=== PATIENT | female | born 1980 | race Caucasian/White ===

== ENCOUNTER → 2017-12-28 | Outpatient (REF) | payer BC ==
[2017-12-29 13:57] LABS: FERRITIN 19 NG/ML (8-252); IRON (FE) 53 UG/DL (50-170); PERCENT SATURATION 12.2 % (13.2-45.0); TOTAL IRON BINDING CAPACITY 433 UG/DL (250-450)
== END ==
LOC: M LAB REF 13:17
DX: D64.9 Anemia, unspecified (principal)
CPT/HCPCS: 82746

== ENCOUNTER → 2018-02-24 | Outpatient (REF) | payer BC ==
[2018-02-24 13:49] LABS: BASO % 0.2 % (0.0-1.0); EOS % 0.5 % (0.0-3.0); HEMATOCRIT 37.2 % (36.0-47.0); HEMOGLOBIN 11.8 g/dl (12.0-15.5); IMMATURE GRANULOCYTE % 0.3 % (0-3.0); LYMPH # 1.4 10^3/uL (1.5-4.5); LYMPH % 23.1 % (24.0-44.0); MEAN CORPUSCULAR HEMOGLOBIN 29.9 pg (27.0-33.0); MEAN CORPUSCULAR HGB CONC 31.7 g/dl (32.0-36.5); MEAN CORPUSCULAR VOLUME 94.4 fl (80.0-96.0); MONO # 0.5 10^3/uL (0.0-0.8); MONO % 8.6 % (0.0-5.0); NEUTROPHILS # 4.2 10^3/uL (1.8-7.7); NEUTROPHILS % 67.3 % (36.0-66.0); PLATELET COUNT, AUTOMATED 252 10^3/uL (150-450); RED BLOOD COUNT 3.94 10^6/uL (4.00-5.40); RED CELL DISTRIBUTION WIDTH 12.8 % (11.5-14.5); WHITE BLOOD COUNT 6.2 10^3/uL (4.0-10.0)
[2018-02-24 14:17] LABS: ALBUMIN 3.1 GM/DL (3.2-5.2); ALBUMIN/GLOBULIN RATIO 0.84 (1.00-1.93); ALKALINE PHOSPHATASE 61 U/L (45-117); ALT/SGPT 21 U/L (12-78); ANION GAP 8 MEQ/L (8-16); AST/SGOT 14 U/L (7-37); BILIRUBIN,TOTAL 0.4 MG/DL (0.2-1.0); BLOOD UREA NITROGEN 18 MG/DL (7-18); CALCIUM LEVEL 8.5 MG/DL (8.5-10.1); CARBON DIOXIDE LEVEL 24 MEQ/L (21-32); CHLORIDE LEVEL 108 MEQ/L (98-107); CREATININE FOR GFR 0.95 MG/DL (0.55-1.30); ERYTHROCYTE SEDIMENTATION RATE 41 mm/hr (0-20); FOLATE 11.2 NG/ML; GLOMERULAR FILTRATION RATE > 60.0 (>60); GLUCOSE, FASTING 81 MG/DL (70-100); POTASSIUM SERUM 4.5 MEQ/L (3.5-5.1); RHEUMATOID FACTOR QUANT < 10.0 IU/ML (<15.0); SODIUM LEVEL 140 MEQ/L (136-145); TOTAL 25(OH) VITAMIN D 47.2 NG/ML (30.0-100.0); TOTAL PROTEIN 6.8 GM/DL (6.4-8.2); VITAMIN B12 LEVEL 522 PG/ML
[2018-02-28 14:10] LABS: LEVETIRACETAM (KEPPRA) 40.8 ug/mL (10.0-40.0)
[2018-02-28 14:10] LABS: ANTI DOUBLE STRAND-DNA AB 1 IU/mL (0-9); ANTINUCLEAR ANTIBODIES DIRECT Positive (Negative); RNP ANTIBODIES <0.2 AI (0.0-0.9); SJOGREN'S ANTI SS-B <0.2 AI (0.0-0.9); SMITH ANTIBODIES <0.2 AI (0.0-0.9)
== END ==
LOC: M LABNEURO 09:04
DX: R51 Headache (principal); M54.2 Cervicalgia
CPT/HCPCS: 82746

== ENCOUNTER → 2018-05-13 | Outpatient (REF) | payer BC ==
[2018-05-16 14:46] LABS: ANTINUCLEAR ANTIBODIES DIRECT Negative (Negative); CARDIOLIPIN IGA ANTIBODY <9 APL U/mL (0-11); CARDIOLIPIN IGG ANTIBODY <9 GPL U/mL (0-14); CARDIOLIPIN IGM ANTIBODY <9 MPL U/mL (0-12)
== END ==
LOC: M LABNEURO 10:25
PROVIDERS: ATTEND Psychiatry & Neurology Neurology
DX: R51 Headache (principal)

== ENCOUNTER → 2018-10-15 | Outpatient (CLI) | payer BC ==
[2018-10-15 12:24] LABS: BASO % 0.4 % (0.0-1.0); EOS % 0.6 % (0.0-3.0); HEMATOCRIT 36.7 % (36.0-47.0); HEMOGLOBIN 11.8 g/dl (12.0-15.5); LYMPH # 2.1 10^3/uL (1.5-4.5); LYMPH % 39.5 % (24.0-44.0); MEAN CORPUSCULAR HEMOGLOBIN 29.6 pg (27.0-33.0); MEAN CORPUSCULAR HGB CONC 32.2 g/dl (32.0-36.5); MONO # 0.5 10^3/uL (0.0-0.8); MONO % 9.3 % (0.0-5.0); NEUTROPHILS # 2.7 10^3/uL (1.8-7.7); PLATELET COUNT, AUTOMATED 217 10^3/uL (150-450); RED BLOOD COUNT 3.99 10^6/uL (4.00-5.40); WHITE BLOOD COUNT 5.4 10^3/uL (4.0-10.0)
[2018-10-15 12:50] LABS: BLOOD UREA NITROGEN 13 MG/DL (7-18); CARBON DIOXIDE LEVEL 27 MEQ/L (21-32); CHLORIDE LEVEL 107 MEQ/L (98-107); CREATININE FOR GFR 0.74 MG/DL (0.55-1.30); GLOMERULAR FILTRATION RATE > 60.0 (>60); GLUCOSE, FASTING 90 MG/DL (70-100); POTASSIUM SERUM 4.5 MEQ/L (3.5-5.1); SODIUM LEVEL 141 MEQ/L (136-145)
[2018-10-15 12:51] LABS: CALCIUM LEVEL 8.7 MG/DL (8.5-10.1); THYROID STIMULATING HORMONE 0.926 uIU/ML (0.358-3.740)
== END ==
LOC: M LAB 11:11
PROVIDERS: ATTEND Internal Medicine
DX: D64.9 Anemia, unspecified (principal); E83.42 Hypomagnesemia

== ENCOUNTER 2019-05-14 16:00 | Emergency (ER) | payer BC ==
[~2019-05-14] VITALS: Ht 170.2 cm; Wt 112.6 kg
[2019-05-14] MEDS ORDERED: GALC120S SQ (16:12)
[2019-05-14] MEDS ORDERED: INDO-16 PO (16:12)
[2019-05-14] MEDS ORDERED: OMEG10002 PO (16:12)
[2019-05-14] MEDS ORDERED: CETI10CA2 PO (16:12)
[2019-05-14] MEDS ORDERED: FLON1SPR NARES (16:12)
[2019-05-14] MEDS ORDERED: KEPP1TAB2 PO (16:12)
[2019-05-14] MEDS ORDERED: SUMA100T2 PO (16:12)
[2019-05-14] MEDS ORDERED: BENEPOW18 PO (16:12)
[2019-05-14] MEDS ORDERED: COLA100C5 PO (16:12)
[2019-05-14] MEDS ORDERED: LISI-538 PO (16:12)
[2019-05-14] MEDS ORDERED: ALIG4CAP PO (16:12)
[2019-05-14] MEDS ORDERED: CVS500CA5 PO (16:12)
[2019-05-14] MEDS ORDERED: DEXI60CA2 PO (16:12)
[2019-05-14] MEDS ORDERED: B-12100010 PO (16:12)
[2019-05-14] MEDS ORDERED: IRON65TA2 PO (16:12)
[2019-05-14] MEDS ORDERED: VITA500079 PO (16:12)
[2019-05-14] MEDS ORDERED: ACETAMINOPHEN 325 MG TAB PO ONE (17:45)
[2019-05-14] MEDS ORDERED: NS 1,000 ML IV ONE (17:45)
[2019-05-14] MEDS ORDERED: KETOROLAC 30 MG/ML VIAL (J1885) IV ONE (18:07)
[2019-05-14 19:05] LABS: BASO % 0.2 % (0.0-1.0); EOS # 0.1 10^3/uL (0.0-0.5); EOS % 0.7 % (0.0-3.0); HEMATOCRIT 40.6 % (36.0-47.0); HEMOGLOBIN 13.3 g/dl (12.0-15.5); LYMPH # 2.8 10^3/uL (1.5-5.0); LYMPH % 34.3 % (24.0-44.0); MEAN CORPUSCULAR HEMOGLOBIN 30.6 pg (27.0-33.0); MEAN CORPUSCULAR HGB CONC 32.8 g/dl (32.0-36.5); MEAN CORPUSCULAR VOLUME 93.5 fl (80.0-96.0); MONO # 0.7 10^3/uL (0.0-0.8); MONO % 8.2 % (0.0-5.0); NEUTROPHILS # 4.7 10^3/uL (1.5-8.5); NEUTROPHILS % 56.5 % (36.0-66.0); PLATELET COUNT, AUTOMATED 255 10^3/uL (150-450); RED BLOOD COUNT 4.34 10^6/uL (4.00-5.40); WHITE BLOOD COUNT 8.3 10^3/uL (4.0-10.0)
--- NOTE | 2019-05-14 19:14 | REPVR ---
PROCEDURE INFORMATION: Exam: US Pelvis Complete, Transabdominal and US Pelvis, Transvaginal Exam date and time: 05/14/2019 5:43 PM Age: 38 years old Clinical indication: Pelvic pain; Additional info: Severe pelvic pain, heavy vag bleeding TECHNIQUE: Imaging protocol: Real-time transabdominal and transvaginal pelvic ultrasound (complete) with image documentation. Transvaginal imaging was used for better evaluation of the endometrium and adnexa. COMPARISON: No relevant prior studies available. FINDINGS: Uterus/cervix: The uterus measures 8.9 x 4.7 x 5.2 cm. The uterus is retroverted and retroflexed. The endometrial stripe measures 1.0 cm in thickness. This study is limited by body habitus and uterine orientation. An intramural mass is identified within the anterior wall of the uterus measuring 2.0 x 2.0 x 2.6 cm, consistent with a fibroid. Evaluation of the cervix is limited. Right adnexa: The right ovary measures 2.6 x 1.4 x 1.4 cm. Small follicles are visualized within the right ovary. There is preservation of blood flow within the right ovary. Left adnexa: The left ovary measures 3.5 x 1.8 x 2.3 cm. Hypoechoic follicles are visualized within the left ovary. There is preservation of blood flow within the left ovary. There is a 1.0 x 0.7 cm dominant follicle or small cyst within the left ovary. Free fluid: Trace free fluid within the cul-de-sac is equivocal. Bladder: Suboptimal evaluation. IMPRESSION: 1. An intramural mass is identified within the anterior wall of the uterus measuring 2.0 x 2.0 x 2.6 cm, consistent with a fibroid. Follow-up ultrasonography is recommended. 2. There is a 1.0 x 0.7 cm dominant follicle or small cyst within the left ovary. 3. Additional findings described above. Electronically signed by: Francisco Javier Weathers On 05/14/2019 19:14:07 PM
[2019-05-14 19:41] LABS: BLOOD UREA NITROGEN 12 MG/DL (7-18); CALCIUM LEVEL 8.4 MG/DL (8.5-10.1); CARBON DIOXIDE LEVEL 27 MEQ/L (21-32); CHLORIDE LEVEL 109 MEQ/L (98-107); CREATININE FOR GFR 0.89 MG/DL (0.55-1.30); GLOMERULAR FILTRATION RATE > 60.0 (>60); GLUCOSE, FASTING 96 MG/DL (70-100); POTASSIUM SERUM 4.2 MEQ/L (3.5-5.1); SODIUM LEVEL 142 MEQ/L (136-145)
[2019-05-14] MEDS ORDERED: NORC1TAB7 PO (19:52)
[2019-05-14] MEDS ORDERED: NORCO 5/325MG TABLET (BULK FOR ED) PO ONE (20:00)
[2019-05-14 20:17] VITALS: BP 135/86
[2019-05-14] MEDS ORDERED: TRAM50TA2 PO (20:22)
[2019-05-14] MEDS ORDERED: traMADol 50 MG TAB PO ONE (20:30)
== END 2019-05-14 20:35 | disposition home or self-care (01) ==
LOC: M ED 16:00
DX: D25.9 Leiomyoma of uterus, unspecified (principal); R10.2 Pelvic and perineal pain; N94.6 Dysmenorrhea, unspecified; N83.202 Unspecified ovarian cyst, left side; K21.9 Gastro-esophageal reflux disease without esophagitis; M13.80 Other specified arthritis, unspecified site; R01.1 Cardiac murmur, unspecified; Z88.5 Allergy status to narcotic agent; Z91.040 Latex allergy status; Z79.899 Other long term (current) drug therapy
CPT/HCPCS: 76830; 76856; 80047; 80048; 81001; 84702; 85025; 93976; 96361; 96374; 99284; J1885

== ENCOUNTER → 2019-07-13 | Outpatient (REF) | payer BC ==
[~2019-07-13] MED LIST: ALIG4CAP PO; B-12100010 PO; BENEPOW18 PO; CETI10CA2 PO; COLA100C5 PO; CVS500CA5 PO; DEXI60CA2 PO; FLON1SPR NARES; GALC120S SQ; INDO-16 PO; IRON65TA2 PO; KEPP1TAB2 PO; LISI-538 PO; NORC1TAB7 PO; OMEG10002 PO; SUMA100T2 PO; TRAM50TA2 PO; VITA500079 PO
[2019-07-13 15:05] LABS: CHLAMYDIA DNA AMPLIFICATION NEGATIVE (NEGATIVE); GC DNA AMPLIFICATION NEGATIVE (NEGATIVE)
[2019-07-14 08:41] LABS: HEPATITIS B SURFACE ANTIGEN NEGATIVE (NEGATIVE)
[2019-07-14 09:06] LABS: HEPATITIS A ANTIBODY IGM NEGATIVE (NEGATIVE); HEPATITIS B CORE ANTIBODY IGM NEGATIVE (NEGATIVE); HEPATITIS C VIRUS ABY INDEX 0.1 INDEX (<0.8); HIV 1&2 SCREEN CENTAUR NEGATIVE (NEGATIVE)
== END ==
LOC: M LAB REF 12:31
PROVIDERS: ATTEND Internal Medicine
DX: Z72.51 High risk heterosexual behavior (principal)

== ENCOUNTER → 2021-07-18 | Outpatient (CLI) | payer BC ==
[~2021-07-18] MED LIST changes: -LISI-538 PO; +LISI20TA33 PO; +VITA100093 PO
== END ==
LOC: M LABSMTC 10:21
PROVIDERS: ATTEND Anesthesiology
DX: Z01.818 Encounter for other preprocedural examination (principal); Z11.52 Encounter for screening for COVID-19

== ENCOUNTER 2021-07-23 07:08 | Day surgery (SDC) | payer BC ==
[~2021-07-23] VITALS: Ht 170.2 cm; Wt 115.8 kg
[~2021-07-23 07:08] MED LIST changes: +LR 1,000 ML IV ONE; +ceFAZolin SOD 2 GM in IV 1 EA IV ONE
[2021-07-23] MEDS ORDERED: LIDOCAINE 2% 100MG/5ML SDV (FOR ANES.) As Ordered ONE (07:11)
[2021-07-23] MEDS ORDERED: propofoL 200 MG/20 ML VIAL As Ordered ONE (07:11)
[2021-07-23] MEDS ORDERED: fentaNYL 100 MCG/2 ML INJECTION As Ordered ONE (07:11)
[2021-07-23] MEDS ORDERED: MIDAZOLAM INJ 2MG/2ML VIAL (J2250 PER 1MG) As Ordered ONE (07:11)
[2021-07-23] MEDS ORDERED: propofoL 500 MG/50 ML VIAL As Ordered ONE (07:14)
[2021-07-23] MEDS ORDERED: ONDANSETRON 4MG/2ML VIAL As Ordered ONE (07:15)
[2021-07-23] MEDS ORDERED: LIDOCAINE 2% MDV 20ML VIAL As Ordered ONE (08:55)
[2021-07-23] MEDS ORDERED: dexameTHASONE 4 MG/ML 1ML VIAL (J1100 PER 1MG) As Ordered ONE (08:55)
[2021-07-23] MEDS ORDERED: BUPIVACAINE HCL 0.5% 30ML VIAL As Ordered ONE (08:56)
[2021-07-23 10:15] VITALS: BP 129/82
[2021-07-23] MEDS ORDERED: LR 1,000 ML IV SCH (10:15)
[2021-07-23] MEDS ORDERED: oxyCODONE 5MG TAB PO PRN (10:15)
[2021-07-23] MEDS ORDERED: ONDANSETRON 4MG/2ML VIAL IV PRN (10:15)
[2021-07-23] MEDS ORDERED: fentaNYL 100 MCG/2 ML INJECTION IV PRN (10:15)
== END 2021-07-23 10:28 | disposition home or self-care (01) ==
LOC: M SDC 07:08
PROVIDERS: ATTEND Podiatrist Foot & Ankle Surgery
DX: M72.2 Plantar fascial fibromatosis (principal); I10 Essential (primary) hypertension; K21.9 Gastro-esophageal reflux disease without esophagitis; D64.9 Anemia, unspecified; G43.909 Migraine, unspecified, not intractable, without status migrainosus; R01.1 Cardiac murmur, unspecified; Z79.899 Other long term (current) drug therapy; E16.2 Hypoglycemia, unspecified; Z88.5 Allergy status to narcotic agent; Z88.8 Allergy status to other drugs, medicaments and biological substances; Z91.040 Latex allergy status
CPT/HCPCS: 29893; 81025; J0690; J1100; J2250; J2405; J3010

== ENCOUNTER → 2022-03-02 | Outpatient (REF) | payer BC ==
[~2022-03-02] MED LIST changes: -LR 1,000 ML IV ONE; -ceFAZolin SOD 2 GM in IV 1 EA IV ONE
== END ==
LOC: M LAB REF 12:41
PROVIDERS: ATTEND Physician Assistant
DX: B34.9 Viral infection, unspecified (principal)